=== PATIENT | male | born 1965 | race Caucasian/White ===

== ENCOUNTER 2016-12-13 08:09 | Day surgery (SDC) | payer BC ==
[2016-12-11 11:10] VITALS: BMI 35.2
[~2016-12-13 08:09] MED LIST: LACTATED RINGERS 1,000 ML IV SCH
[2016-12-13 08:59] VITALS: RESP 16; TEMP 98
[2016-12-13] MEDS ORDERED: LIDOCAINE 1% 20 ML VIAL (10MG/ML) FOR IV START INTRADERMA ONE (09:00)
[2016-12-13] MEDS ORDERED: PROPOFOL 10 MG/ML 20 ML VIAL IV ONE (09:11)
--- NOTE | 2016-12-13 09:26 | P.PCN ---
Date of Procedure: 12/13/16 Procedure(s) Performed: BRIEF HISTORY: Patient is a 51-year-old pleasant white male scheduled for an elective colonoscopy as a part of evaluation of intermittent rectal bleeding for the last 6 months duration. PROCEDURE PERFORMED: Colonoscopy. PREOPERATIVE DIAGNOSIS: Intermittent rectal bleeding. IV sedation per Anesthesia. PROCEDURE: After informed consent was obtained, the patient, was brought into the endoscopy unit. IV sedation was administered by Anesthesia under continuous monitoring. Digital rectal examination was normal. Initially the Olympus CF- 160 flexible video colonoscope was then inserted in the rectum, gradually advanced into the cecum without any difficulty. Careful examination was performed as the scope was gradually being withdrawn. Ileocecal valve and the appendiceal orifice were visualized and appeared normal. Prep was excellent. Mucosa of the cecum, ascending colon, transverse colon, descending colon, sigmoid colon, and rectum appeared normal. Retroflexion was performed in the rectum and small internal hemorrhoids were seen. The patient tolerated the procedure well. IMPRESSION: Normal-appearing colon from rectum to cecum with no evidence of colorectal neoplasia. Small internal hemorrhoids. RECOMMENDATIONS: Findings of this examination were discussed with the patient as well as his family. He was advised to be a high-fiber diet, take fiber supplements a regular basis and avoid straining and constipation. He was advised to have a repeat screening colonoscopy in 10 years.
[2016-12-13 10:07] VITALS: BP 133/79; PULSE 91
== END 2016-12-13 10:02 | disposition home or self-care (01) ==
LOC: ORWHC2ENDO 08:09
PROVIDERS: ATTEND Internal Medicine Gastroenterology
DX: K64.8 Other hemorrhoids (principal); K62.5 Hemorrhage of anus and rectum
CPT/HCPCS: 45378; J2704

== ENCOUNTER 2019-03-24 16:23 | Observation (INO) | payer BC ==
[2019-03-24] MEDS ORDERED: NITROGLYCERIN SL TABS 0.4 MG TAB SUBLINGUAL STA (16:47)
[2019-03-24] MEDS ORDERED: ASPIRIN 81 MG PO STA (16:47)
--- NOTE | 2019-03-24 16:55 | ED ---
Chest Pain HPI - General Source: patient Mode of arrival: wheelchair Limitations: no limitations <Mandeep Dorman - Last Filed: 03/24/19 20:28> <Camila Garcia - Last Filed: 03/28/19 14:04> - General Chief Complaint: Chest Pain Stated Complaint: CHEST PAIN Time Seen by Provider: 03/24/19 16:32 - History of Present Illness Initial Comments: Patient is a 53-year-old male presents emergency Department with chief complaint of chest pain. Patient reports the pain started approximately 2 days and has stayed consistent. Patient states that is an "ache rather than pain." Patient reports the pain is located at the left side of the chest and does not radiate anywhere. Patient denies near syncope, lightheadedness, dizziness, shortness of breath, chest tightness, diaphoresis or any radiation of the pain. Patient reports the pain is not exacerbated with ambulation. She reports the pain is not related to any positional movements. Patient reports a family history of heart attacks. Patient is not a smoker. (Mandeep Dorman) - Related Data Home Medications Medication Instructions Recorded Confirmed Loratadine [Claritin] 10 mg PO HS 03/24/19 03/24/19 Previous Rx's Medication Instructions Recorded Pantoprazole Sodium [Protonix] 40 mg PO -BRKFST #30 tablet. 03/25/19 Allergies Allergy/AdvReac Type Severity Reaction Status Date / Time No Known Allergies Allergy Verified 03/24/19 17:07 Review of Systems ROS Other: All systems not noted in ROS Statement are negative. <Mandeep Dorman - Last Filed: 03/24/19 20:28> ROS Other: All systems not noted in ROS Statement are negative. <Camila Garcia - Last Filed: 03/28/19 14:04> ROS Statement: Those systems with pertinent positive or pertinent negative responses have been documented in the HPI. EKG Findings - EKG Comments: EKG Findings:: EKG demonstrates normal sinus rhythm with a ventricular rate of 90. OH interval 188. QRS 90. QTC 452. There are no acute ST segment elevations or depressions concerning for ischemic changes. <Camila Garcia - Last Filed: 03/28/19 14:04> Past Medical History Past Medical History: No Reported History History of Any Multi-Drug Resistant Organisms: None Reported Past Surgical History: Adenoidectomy, Tonsillectomy Additional Past Surgical History / Comment(s): COLONOSCOPY Past Anesthesia/Blood Transfusion Reactions: No Reported Reaction Past Psychological History: No Psychological Hx Reported Smoking Status: Never smoker Past Alcohol Use History: None Reported Past Drug Use History: None Reported - Past Family History Mother Family Medical History: Cancer <Mandeep Dorman - Last Filed: 03/24/19 20:28> General Exam Limitations: no limitations General appearance: alert, in no apparent distress, obese Head exam: Present: atraumatic, normocephalic, normal inspection Eye exam: Present: normal appearance, PERRL, EOMI Pupils: Present: normal accommodation ENT exam: Present: normal exam, normal oropharynx, mucous membranes moist, TM's normal bilaterally, normal external ear exam Neck exam: Present: normal inspection, full ROM. Absent: tenderness Respiratory exam: Present: normal lung sounds bilaterally. Absent: respiratory distress, rales Cardiovascular Exam: Present: regular rate, normal rhythm, normal heart sounds GI/Abdominal exam: Present: soft, normal bowel sounds. Absent: tenderness, guarding, rebound Extremities exam: Present: normal inspection, full ROM Back exam: Present: normal inspection, full ROM Neurological exam: Present: alert, oriented X3 Psychiatric exam: Present: normal affect, normal mood Skin exam: Present: warm, intact, normal color <Mandeep Dorman - Last Filed: 03/24/19 20:28> Course Vital Signs 03/24/19 03/24/19 16:26 21:24 Temperature 98.2 F 97.7 F Pulse Rate 102 H 80 Respiratory 18 20 Rate Blood Pressure 155/87 145/93 O2 Sat by Pulse 95 94 L Oximetry Chest Pain [facility] <Mandeep Dorman - Last Filed: 03/24/19 20:28> - Differential Diagnosis AMI, ACS, Pericarditis, Pneumonia <Camila Garcia - Last Filed: 03/28/19 14:04> - [facility] Patient 53-year-old male presents emergency Department with chief complaint of chest pain. Physical examination is remarkable not radiating chest pain. Patient is not diaphoretic or syncopal. Patient vitals are stable. EKGs indicative normal sinus rhythm. Chest x-ray is unremarkable. Labs are unremarkable. Troponin levels are within normal limits. Patient has poor attendance with primary care this baseline cholesterol levels are unknown, patient is obese, about 46 years old and does have a family history of cardiovascular disease. Thus, patient will be admitted for observation and repeat troponins. Strict return parameters were thoroughly discussed the patient was understanding and agreeable. Case discussed with Dr. Garcia. Admitting physician is Dr. Cornejo. (Mandeep Dorman) The case is discussed with me. The patients calculated heart score is 4. As the patient is considered moderate risk for a cardiac event, I did recommend hospital admission. The patient agreed. The case was discussed with Dr. Caraballo who accepted admission. The patient remained in stable condition and was transported to the floor. (Camila Garcia) Disposition Is patient prescribed a controlled substance at d/c from ED?: No Time of Disposition: 20:34 <Mandeep Dorman - Last Filed: 03/24/19 20:28> Decision to Admit Reason: Admit from EC Decision Date: 03/24/19 Decision Time: :34 <Camila Garcia - Last Filed: 03/28/19 14:04> Clinical Impression: Chest pain Disposition: ADMITTED IP TO THIS [facility] Condition: Good
--- NOTE | 2019-03-24 17:22 | XR ---
EXAMINATION TYPE: XR chest 2V DATE OF EXAM: 03/24/2019 COMPARISON: NONE HISTORY: Chest pain TECHNIQUE: Frontal and lateral views of the chest are obtained. FINDINGS: Heart and mediastinum are normal. Lungs are clear. Diaphragm is normal. Bony thorax is int act. There are chest leads. IMPRESSION: Normal chest
[2019-03-24 17:25] LABS: Basophils # (A) 0.1 k/uL (0-0.2); Basophils % (A) 1 %; Eosinophils # (A) 0.4 k/uL (0-0.7); Eosinophils % (A) 5 %; HCT 42.9 % (39.0-53.0); HGB 14.5 gm/dL (13.0-17.5); Lymphocytes % (A) 24 %; MCH 30.3 pg (25.0-35.0); MCHC 33.7 g/dL (31.0-37.0); MCV 89.8 fL (80.0-100.0); Monocytes # (A) 0.5 k/uL (0-1.0); Monocytes % (A) 6 %; Neutrophils # (A) 5.2 k/uL (1.3-7.7); Neutrophils % (A) 62 %; Platelet Count 217 k/uL (150-450); RBC 4.77 m/uL (4.30-5.90); RDW 13.8 % (11.5-15.5); WBC 8.3 k/uL (3.8-10.6)
[2019-03-24 17:33] LABS: INR 0.9 (<1.2); Partial Thromboplastin Time 25.2 sec (22.0-30.0); Prothrombin Time 9.4 sec (9.0-12.0)
[2019-03-24 17:36] LABS: ALT 24 U/L (21-72); AST 21 U/L (17-59); African American GFR (CKD) >90 (>60 ml/min/1.73 sqM); Albumin 3.8 g/dL (3.5-5.0); Alkaline Phosphatase 81 U/L (38-126); Anion Gap 9 mmol/L; Blood Urea Nitrogen 15 mg/dL (9-20); Calcium 8.9 mg/dL (8.4-10.2); Carbon Dioxide 25 mmol/L (22-30); Chloride 107 mmol/L (98-107); Glucose 100 mg/dL (74-99); Potassium 4.4 mmol/L (3.5-5.1); Sodium 141 mmol/L (137-145); Total Bilirubin 0.4 mg/dL (0.2-1.3); Total Protein 6.9 g/dL (6.3-8.2)
[2019-03-24] MEDS ORDERED: NALOXONE 0.4 MG/ML 1 ML VIAL IV PRN ×2 (19:28→20:25)
[2019-03-24] MEDS ORDERED: SODIUM CHLORIDE 0.9% 1,000 ML IV SCH (19:30)
[2019-03-25 05:16] VITALS: RESP 18
[2019-03-25] MEDS ORDERED: ALBUTEROL NEBULIZED 2.5 MG/3 ML INHALATION PRN (08:57)
[2019-03-25] MEDS: ALBUTEROL NEBULIZED 2.5 MG/3 ML INHALATION SCH ×2 (09:42→15:15)
[2019-03-25 11:28] VITALS: TEMP 97.6
--- NOTE | 2019-03-25 11:53 | ECHOF ---
Referral Reason:cp MEASUREMENTS -------- HEIGHT: 180.3 cm WEIGHT: 126.1 kg BP: 143/89 RVIDd: 4.5 cm (< 3.3) IVSd: 1.8 cm (0.6 - 1.1) LVIDd: 4.7 cm (3.9 - 5.3) LVPWd: 1.4 cm (0.6 - 1.1) IVSs: 2.1 cm LVIDs: 4.1 cm LVPWs: 1.5 cm LAESV Index (A-L): 20.48 ml/m Ao Diam: 3.9 cm (2.0 - 3.7) AV Cusp: 2.5 cm (1.5 - 2.6) LA Diam: 4.0 cm (2.7 - 3.8) EPSS: 0.4 cm MV E Charles: 0.75 m/s MV DecT: 198 ms MV A Charles: 0.65 m/s MV E/A Ratio: 1.17 RAP: 5.00 mmHg RVSP: 24.42 mmHg MV EF SLOPE: 110.04 mm/s (70 - 150) MV EXCURSION: 2.05 cm (> 18.000) FINDINGS -------- Sinus rhythm. This was a technically adequate study. The left ventricular size is normal. There is moderate concentric left ventricular hypertrophy. O verall left ventricular systolic function is normal with, an EF between 55 - 60 %. The diastolic fi lling pattern is normal for the age of the patient. The right ventricle is mildly enlarged. Left atrium is normal size by volume. The right atrial size is normal. Interatrial and interventricular septum intact. There is no evidence of aortic regurgitation. There is no evidence of aortic stenosis. No mitral regurgitation. Mild tricuspid regurgitation present. There is no evidence of pulmonary hypertension. The right v entricular systolic pressure, as measured by Doppler, is 24.42mmHg. There is no pulmonic regurgitation present. The aortic root size is normal. IVC not well visualized There is no pericardial effusion. CONCLUSIONS -------- 1. Sinus rhythm. 2. This was a technically adequate study. 3. The left ventricular size is normal. 4. There is moderate concentric left ventricular hypertrophy. 5. Overall left ventricular systolic function is normal with, an EF between 55 - 60 %. 6. The diastolic filling pattern is normal for the age of the patient. 7. The right ventricle is mildly enlarged. 8. Left atrium is normal size by volume. 9. The right atrial size is normal. 10. Interatrial and interventricular septum intact. 11. There is no evidence of aortic regurgitation. 12. There is no evidence of aortic stenosis. 13. No mitral regurgitation. 14. Mild tricuspid regurgitation present. 15. There is no evidence of pulmonary hypertension. 16. The right ventricular systolic pressure, as measured by Doppler, is 24.42mmHg. 17. There is no pulmonic regurgitation present. 18. The aortic root size is normal. 19. There is no pericardial effusion. STATEMENT REQUEST CLERK: Yesenia Michael RDCS
--- NOTE | 2019-03-25 12:55 | ECHOS ---
STRESS ECHOCARDIOGRAM DATE OF SERVICE: 03/25/2019 INDICATIONS: Chest pain. MEDICATIONS: BASELINE HEART RATE: 81 BASELINE BLOOD PRESSURE: 114/58 MAXIMUM HEART RATE: 148 MAXIMUM BLOOD PRESSURE: 194/83 85% MPHR: 143 100% MPHR: 168 METS: 8 MAXIMUM STAGE REACHED: III TOTAL EXERCISE TIME: 7 minutes CLINICAL INFORMATION: Baseline EKG shows sinus rhythm, normal axis, normal intervals. Patient exercised on Sergei protocol for a total of 7 minutes achieving 8 METS, 88% of predicted maximal heart rate without chest pain or diagnostic ST-segment depression. Baseline echo shows normal left ventricular size, wall motion, and systolic function. Postexercise, there is normal hyperdynamic response of all segments of myocardium noted. CONCLUSIONS: 1. Average exercise tolerance. 2. Negative stress test by EKG criteria. 3. Negative stress echo. MMODL / IJN: [id number] /
--- NOTE | 2019-03-25 13:13 | P.CRDCN ---
History of Present Illness History of present illness: This is a pleasant 53-year-old male with no significant past medical history. He does not follow regularly with a licensed surveyor for any reason. We have been assisting him in consultation secondary to chest discomfort. He states since Friday he has felt pressure in the midsternal region. There is no radiation to the back, arm, neck or jaw. There is no associated shortness of breath, dizziness, nausea, vomiting, palpitations or diaphoresis. He did some heavy lifting on Friday and initially attributed this discomfort to musculoskeletal strain. However this pressure has remained constant since Friday with no alleviating or aggravating factors. He continues to have ongoing chest discomfort at the time of my exam. He also states he intermittently feels an irregular heartbeat associated with a sharp pain. EKG reveals sinus mechanism with no acute ST or T wave abnormalities noted. Telemetry tracings reviewed reveal PVCs. Chest x-ray is negative for an acute cardiopulmonary process. Laboratory data reviewed, CBC unremarkable, d-dimer 0.51, sodium 141, potassium 4.4, creatinine 1.02, magnesium 2.0, cardiac enzymes negative 2 and TSH 1.68. At the time of my exam: CONSTITUTIONAL: Denies fever. Denies chills. EYES: Denies blurred vision. Denies vision changes. Denies eye pain. EARS, NOSE, MOUTH & THROAT: Denies headache. Denies sore throat. Denies ear pain. CARDIOVASCULAR: Complains of chest pain. Denies shortness of breath. Denies orthopnea. Denies PND. Denies palpitations. RESPIRATORY: Denies cough. GASTROINTESTINAL: Denies abdominal pain. Denies diarrhea. Denies constipation. Denies nausea. Denies vomiting. MUSCULOSKELETAL: Denies myalgias. INTEGUMENTARY: Denies pruitis. Denies rash. NEUROLOGIC: Denies numbness. Denies tingling. Denies weakness. PSYCHIATRIC: Denies anxiety. Denies depression. ENDOCRINE: Denies fatigue. Denies weight change. Denies polydipsia. Denies polyurina. GENITOURINARY: Denies burning, hematuria or urgency with micturation. HEMATOLOGIC: Denies history of anemia. Denies bleeding. Blood pressure 125/80 heart rate 79 afebrile maintaining oxygen saturation on room air GENERAL: This is a 53-year-old male in no apparent distress at the time of my examination. Obese. HEENT: Head is atraumatic, normocephalic. Pupils are equal, round. Sclerae anicteric. Conjunctivae are clear. Mucous membranes of the mouth are moist. Neck is supple. There is no jugular venous distention. No carotid bruit is heard. LUNGS: Clear to auscultation no wheezes, rales or rhonchi. No chest wall tenderness is noted on palpation or with deep breathing. HEART: Regular rate and rhythm without murmurs, rubs or gallops. S1 and S2 heard. ABDOMEN: Soft, nontender. Bowel sounds are heard. No organomegaly noted. EXTREMITIES: No evidence of peripheral edema and no calf tenderness noted. VASCULAR: Radial and dorsalis pedis pulses palpated, no evidence of clubbing. NEUROLOGIC: Patient is awake, alert and oriented x3. ASSESSMENT Chest pain, atypical for angina. An acute coronary event has been ruled out. PLAN An acute coronary event has been ruled out. Obtain 2-D echocardiogram and Doppler study to assess cardiac structure and function. Perform stress echocardiogram to assess her stress-induced ischemic changes. Stress test is normal he is stable from a cardiac perspective. Ongoing medical management and assessment for noncardiac causes chest discomfort. Thank you kindly for this consultation. Nurse Practitioner note has been reviewed, I agree with a documented findings and plan of care. Patient was seen and examined. Past Medical History Past Medical History: No Reported History History of Any Multi-Drug Resistant Organisms: None Reported Past Surgical History: Adenoidectomy, Tonsillectomy Additional Past Surgical History / Comment(s): COLONOSCOPY Past Anesthesia/Blood Transfusion Reactions: No Reported Reaction Past Psychological History: No Psychological Hx Reported Smoking Status: Never smoker Past Alcohol Use History: None Reported Past Drug Use History: None Reported - Past Family History Mother Family Medical History: Cancer Medications and Allergies Home Medications Medication Instructions Recorded Confirmed Type Loratadine [Claritin] 10 mg PO HS 03/24/19 03/24/19 History RX: Aspirin 325 mg PO QID PRN 03/24/19 03/24/19 History Allergies Allergy/AdvReac Type Severity Reaction Status Date / Time No Known Allergies Allergy Verified 03/24/19 17:07 Physical Exam Vitals: Vital Signs Temp Pulse Pulse Resp BP BP BP 03/25/19 07:15 97.5 F L 69 18 143/89 03/25/19 04:00 98.1 F 74 18 148/92 03/24/19 23:44 97.7 F 75 20 138/84 03/24/19 22:10 20 03/24/19 22:02 98.0 F 75 18 132/83 03/24/19 21:24 97.7 F 80 20 145/93 03/24/19 16:26 98.2 F 102 H 18 155/87 Pulse Ox 03/25/19 07:15 94 L 03/25/19 04:00 93 L 03/24/19 23:44 92 L 03/24/19 22:10 03/24/19 22:02 92 L 03/24/19 21:24 94 L 03/24/19 16:26 95 Intake and Output 03/24/19 03/25/19 03/25/19 22:59 06:59 14:59 Intake Total 100 Balance 100 Intake: Oral 100 Other: Voiding Method Toilet Toilet # Voids 2 Weight 126.099 kg Results 03/24/19 17:01 03/24/19 17:01 Cardiac Enzymes 03/24/19 03/24/19 03/24/19 Range/Units 17:01 17:01 19:47 AST 21 (17-59) U/L Troponin I <0.012 <0.012 (0.000-0.034) ng/mL Coagulation 03/24/19 Range/Units 17:01 PT 9.4 (9.0-12.0) sec APTT 25.2 (22.0-30.0) sec CBC 03/24/19 Range/Units 17:01 WBC 8.3 (3.8-10.6) k/uL RBC 4.77 (4.30-5.90) m/uL Hgb 14.5 (13.0-17.5) gm/dL Hct 42.9 (39.0-53.0) % Plt Count 217 (150-450) k/uL Comprehensive Metabolic Panel 03/24/19 Range/Units 17:01 Sodium 141 (137-145) mmol/L Potassium 4.4 (3.5-5.1) mmol/L Chloride 107 (98-107) mmol/L Carbon Dioxide 25 (22-30) mmol/L BUN 15 (9-20) mg/dL Creatinine 1.02 (0.66-1.25) mg/dL Glucose 100 H (74-99) mg/dL Calcium 8.9 (8.4-10.2) mg/dL AST 21 (17-59) U/L ALT 24 (21-72) U/L Alkaline Phosphatase 81 (38-126) U/L Total Protein 6.9 (6.3-8.2) g/dL Albumin 3.8 (3.5-5.0) g/dL Current Medications Generic Name Dose Route Start Last Admin Trade Name Freq PRN Reason Stop Dose Admin Naloxone HCl 0.2 mg 03/24/19 19:28 Narcan IV Q2M PRN Opioid Reversal Naloxone HCl 0.2 mg 03/24/19 20:25 Narcan IV Q2M PRN Opioid Reversal Intake and Output 03/24/19 03/25/19 03/25/19 22:59 06:59 14:59 Intake Total 100 Balance 100 Intake: Oral 100 Other: Voiding Method Toilet Toilet # Voids 2 Weight 126.099 kg 03/24/19 17:01 03/24/19 17:01
[2019-03-25] MEDS ORDERED: PANTOPRAZOLE 40 MG TABLET PO STA (13:44)
[2019-03-25] MEDS ORDERED: MAG HYDROX/AL HYDROX/SIMETH 30 ML CUP PO SCH (14:15)
[2019-03-25 16:04] VITALS: BP 114/73; PULSE 96
--- NOTE | 2019-04-05 01:31 | P.HPIM ---
History of Present Illness H&P Date: 03/25/19 Chief Complaint: Chest pain Erich martinez is a 53-year-old male with a known history of asthma came to ER with complaints of chest pressure starting about 5 days back. Mainly left r etrosternal area. No radiation of the pain. No associated shortness of breath. No nausea vomiting or diaphoresis. No palpitations no headache or dizziness or lightheadedness.He did some heavy lifting on Friday and initially attributed this discomfort to musculoskeletal strain. However this pressure has remained constant since Friday night with no alleviating or aggravating factors. He continues to have ongoing chest discomfort at the time of my exam. He also states he intermittently feels an irregular heartbeat associated with a sharp pain. Patient says that he has been taking aspirin 4 times daily recently. EKG reveals sinus mechanism with no acute ST or T wave abnormalities noted. Telemetry tracings reviewed reveal PVCs. Chest x-ray is negative for an acute cardiopulmonary process. Laboratory data reviewed, CBC unremarkable, d-dimer 0.51, sodium 141, potassium 4.4, creatinine 1.02, magnesium 2.0, cardiac enzymes negative 2 and TSH 1.68. Review of Systems Constitutional: Patient denies any fever or chills . No generalized weakness or weight loss. Abdomen: Patient denied nausea vomiting and diarrhea and abdominal pain. Cardiovascular: Patient denies any chest pain or does have chest pressure. No short of breath no palpitations. Respiratory: patient denied any cough is from production. No shortness of breath Neurologic: Patient denied any numbness or tingling headache. Musculoskeletal: Patient denies any complaints of joint swelling or deformity. Skin: Negative Psychiatric: Negative Endocrine: No heat or cold intolerance. No recent weight gain. Genitourinary: No dysuria or hematuria. All other 14 point ROS negative except the above Past Medical History Past Medical History: No Reported History History of Any Multi-Drug Resistant Organisms: None Reported Past Surgical History: Adenoidectomy, Tonsillectomy Additional Past Surgical History / Comment(s): COLONOSCOPY Past Anesthesia/Blood Transfusion Reactions: No Reported Reaction Past Psychological History: No Psychological Hx Reported Smoking Status: Never smoker Past Alcohol Use History: None Reported Past Drug Use History: None Reported - Past Family History Mother Family Medical History: Cancer Medications and Allergies Home Medications Medication Instructions Recorded Confirmed Type Loratadine [Claritin] 10 mg PO HS 03/24/19 03/24/19 History Pantoprazole Sodium [Protonix] 40 mg PO AC-BRKFST #30 tablet. 03/25/19 Rx Allergies Allergy/AdvReac Type Severity Reaction Status Date / Time No Known Allergies Allergy Verified 03/24/19 17:07 Physical Exam Vitals: Vital Signs Temp Pulse Pulse Resp BP BP BP 03/25/19 07:15 97.5 F L 69 18 143/89 03/25/19 04:00 98.1 F 74 18 148/92 03/24/19 23:44 97.7 F 75 20 138/84 03/24/19 22:10 20 03/24/19 22:02 98.0 F 75 18 132/83 03/24/19 21:24 97.7 F 80 20 145/93 03/24/19 16:26 98.2 F 102 H 18 155/87 Pulse Ox 03/25/19 07:15 94 L 03/25/19 04:00 93 L 03/24/19 23:44 92 L 03/24/19 22:10 03/24/19 22:02 92 L 03/24/19 21:24 94 L 03/24/19 16:26 95 Intake and Output 03/24/19 03/25/19 03/25/19 22:59 06:59 14:59 Intake Total 100 Balance 100 Intake: Oral 100 Other: Voiding Method Toilet Toilet # Voids 2 Weight 126.099 kg PHYSICAL EXAMINATION: Patient is lying in the bed comfortably, no acute distress, awake alert and oriented.. HEENT: Normocephalic. Neck is supple. Pupils reactive. Nostrils clear. Oral cavity is moist. Ears reveal no drainage. Neck reveals no JVD, carotid bruits, or thyromegaly. CHEST EXAMINATION: Trachea is central. Symmetrical expansion. Lung amezquita clear to auscultation and percussion. CARDIAC: Normal S1, S2 with no gallops. No murmurs ABDOMEN: Soft. Bowel sounds normal. No organomegaly. No abdominal bruits. Extremities: reveal no edema. No clubbing or cyanosis Neurologically awake, alert, oriented x3 with well-coordinated movements. No focal deficits noted Skin: No rash or skin lesions. Psychiatric: Coperative. Nonsuicidal Musculoskeletal: No joint swelling or deformity. Normal range of motion. Results CBC & Chem 7: 03/24/19 17:01 03/24/19 17:01 Labs: Abnormal Lab Results - Last 24 Hours (Table) 03/24/19 Range/Units 17:01 Glucose 100 H (74-99) mg/dL Thrombosis Risk Factor Assmnt - DVT/VTE Prophylaxis DVT/VTE Prophylaxis: Pharmacologic Prophylaxis ordered - Choose All That Apply Any of the Below Risk Factors Present?: Yes Each Factor Represents 1 point: Obesity (BMI >25) Other Risk Factors: No Other congenital or acquired thrombophilia - If yes, enter type in comment: No Thrombosis Risk Factor Assessment Total Risk Factor Score: 1 Thrombosis Risk Factor Assessment Level: Low Risk Assessment and Plan Assessment: Atypical chest pain. Ruled out ACS. Possible acute gastritis and esophagitis due to aspirin use 4 times daily. DVT prophylaxis. Plan: Patient will be continued on telemetry monitoring. Serial EKGs and troponins 3 negative. Cardiology is planning for stress echocardiogram today. Patient will be continued on PPI daily. Further recommendations based on the clinical course. Next and Time with Patient: Greater than 30
--- NOTE | 2019-04-05 01:33 | P.DS ---
Providers Date of admission: 03/24/19 20:25 Expected date of discharge: 03/25/19 Attending physician: Carmelo Bui Consults: 03/24/19 21:44 Consult Physician Routine Consulting Provider: Cortney Eden Consult Reason/Comments: Chest Pain/Pressure Do you want consulting provider notified?: Yes, Notify in am [facility] care physician[facility]: Discharge diagnosis Atypical chest pain. Ruled out ACS. Possible acute gastritis and esophagitis due to aspirin use 4 times daily. DVT prophylaxis. Hospital course Patient is a 53-year-old male with a known history of asthma came to ER with complaints of chest pressure starting about 5 days back. Mainly left retrosternal area. No radiation of the pain. No associated shortness of breath. No nausea vomiting or diaphoresis. No palpitations no headache or dizziness or lightheadedness.He did some heavy lifting on Friday and initially attributed this discomfort to musculoskeletal strain. However this pressure has remained constant since Friday night with no alleviating or aggravating factors. He continues to have ongoing chest discomfort at the time of my exam. He also states he intermittently feels an irregular heartbeat associated with a sharp pain. Patient says that he has been taking aspirin 4 times daily recently. EKG reveals sinus mechanism with no acute ST or T wave abnormalities noted. Telemetry tracings reviewed reveal PVCs. Chest x-ray is negative for an acute cardiopulmonary process. Laboratory data reviewed, CBC unremarkable, d-dimer 0.51, sodium 141, potassium 4.4, creatinine 1.02, magnesium 2.0, cardiac enzymes negative 2 and TSH 1.68. Patient was continued on telemetry monitoring. Serial EKGs and troponins 3 negative. Stress echocardiogram showed no inducible ischemia. Normal ejection fraction.. Patient will be continued on PPI daily. Patient is being discharged home today. Discharge physical examination was done and vitals reviewed. Patient Condition at Discharge: Good Plan - Discharge Summary New Discharge Prescriptions: New Pantoprazole Sodium [Protonix] 40 mg PO AC-BRKFST #30 tablet. Continue Loratadine [Claritin] 10 mg PO HS Discontinued Aspirin 325 mg PO QID PRN PRN Reason: Pain Discharge Medication List Loratadine [Claritin] 10 mg PO HS 03/24/19 [History] Pantoprazole Sodium [Protonix] 40 mg PO AC-BRKFST #30 tablet. 03/25/19 [Rx] Follow up Appointment(s)/Referral(s): Ismael Gan DO [Primary Care Provider] - 1-2 days Fran Villela MD [STAFF PHYSICIAN] - 04/13/19 3:45 pm (Please make sure to have identification and insurance cards with you for your appointment. ) Patient Instructions/Handouts: Chest Pain (ED) Activity/Diet/Wound Care/Special Instructions: Patient will be admitted Discharge Disposition: HOME SELF-CARE
== END 2019-03-25 17:10 | disposition home or self-care (01) ==
LOC: EC 16:23 → 1SOBS 20:25
PROVIDERS: ADMIT Internal Medicine; ATTEND Internal Medicine
DX: R07.89 Other chest pain (principal); I49.3 Ventricular premature depolarization; E66.9 Obesity, unspecified; Z68.38 Body mass index [BMI] 38.0-38.9, adult; Z79.82 Long term (current) use of aspirin; Z79.899 Other long term (current) drug therapy; Z82.49 Family history of ischemic heart disease and other diseases of the circulatory system; Z80.9 Family history of malignant neoplasm, unspecified
CPT/HCPCS: 96361 ×2; 96360; 99285; 36415; 94640 ×2; 93005; 93306; 93351; 85379; 80053; 84443; 83735; 84484; 85025; 85610; 85730; 71046; G0378 ×2

== ENCOUNTER 2021-08-11 11:26 | Emergency (ER) | payer BC ==
[2021-08-11 11:35] VITALS: PULSE 77; TEMP 98
--- NOTE | 2021-08-11 12:00 | ED ---
General Adult HPI - General Chief complaint: ENT Stated complaint: Sore Throat Time Seen by Provider: 08/11/21 11:48 Source: patient, RN notes reviewed, old records reviewed Mode of arrival: ambulatory Limitations: no limitations - History of Present Illness Initial comments: Well appearing 56-year-old male, alert and oriented 4, presents to the emerge ncy room with complaints of right-sided jaw pain that radiates down the right side of his neck. Patient states it started on . He denies any nausea, vomiting, dizziness or fevers. He did go to urgent care and they told him he could have a dissection in his neck and to come to the emergency room for a CAT scan. Patient's only medical history is anxiety and takes Xanax as needed. He is a nonsmoker. -: days(s) (2) Location: mouth (right side TMJ ) Radiation: neck Severity scale (1-10): 8 Quality: dull Consistency: constant Improves with: immobilization Worsens with: movement, other (palpation) Associated Symptoms: fever/chills Treatments Prior to Arrival: none - Related Data Home Medications Medication Instructions Recorded Confirmed Loratadine [Claritin] 10 mg PO HS 03/24/19 03/24/19 Previous Rx's Medication Instructions Recorded Pantoprazole Sodium [Protonix] 40 mg PO AC-MARISABELKFST #30 tablet. 03/25/19 Amoxicillin/Potassium Clav 1 tab PO Q12HR #20 tab 08/11/21 [Augmentin 875-125 Tablet] Allergies Allergy/AdvReac Type Severity Reaction Status Date / Time No Known Allergies Allergy Verified 08/11/21 11:35 Review of Systems ROS Statement: Those systems with pertinent positive or pertinent negative responses have been documented in the HPI. ROS Other: All systems not noted in ROS Statement are negative. Past Medical History Past Medical History: No Reported History History of Any Multi-Drug Resistant Organisms: None Reported Past Surgical History: Adenoidectomy, Tonsillectomy Additional Past Surgical History / Comment(s): COLONOSCOPY Past Anesthesia/Blood Transfusion Reactions: No Reported Reaction Past Psychological History: Anxiety Smoking Status: Never smoker Past Alcohol Use History: None Reported Past Drug Use History: None Reported - Past Family History Mother Family Medical History: Cancer General Exam Limitations: no limitations General appearance: alert, in no apparent distress Head exam: Present: atraumatic, normocephalic, normal inspection Eye exam: Present: normal appearance, EOMI. Absent: scleral icterus, conjunctival injection, nystagmus, periorbital swelling, periorbital tenderness ENT exam: Present: normal exam, normal oropharynx, mucous membranes moist, TM's normal bilaterally Expanded Ear exam: Present: normal external inspection TM/Canal exam: Mastoid Tenderness: Right TM Mouth exam: Present: normal external inspection, tongue normal, tongue elevation. Absent: drooling, trismus, muffled voice Throat exam: normal inspection. negative: tonsillar erythema, tonsillomegaly, tonsillar exudate, R peritonsillar mass, L peritonsillar mass Neck exam: Present: normal inspection, full ROM, lymphadenopathy (Right-sided submandibular and anterior cervical chain). Absent: meningismus Respiratory exam: Present: normal lung sounds bilaterally. Absent: respiratory distress, wheezes, rales, rhonchi, stridor, chest wall tenderness, accessory muscle use, decreased breath sounds, prolonged expiratory Cardiovascular Exam: Present: regular rate, normal rhythm, normal heart sounds. Absent: systolic murmur, diastolic murmur, rubs, gallop, clicks GI/Abdominal exam: Present: soft, normal bowel sounds. Absent: distended, tenderness, guarding, rebound, rigid Extremities exam: Present: normal inspection, full ROM, normal capillary refill. Absent: tenderness, pedal edema, joint swelling, calf tenderness Back exam: Present: normal inspection, full ROM. Absent: tenderness, CVA tenderness (R), CVA tenderness (L), rash noted Neurological exam: Present: alert, oriented X3, CN II-XII intact Psychiatric exam: Present: normal affect, normal mood Skin exam: Present: warm, dry, intact, normal color. Absent: rash, cyanosis, diaphoretic Course Vital Signs 08/11/21 08/11/21 11:32 13:31 Temperature 98 F Pulse Rate 77 Respiratory 20 16 Rate Blood Pressure 185/104 151/99 O2 Sat by Pulse 94 L Oximetry Medical Decision Making - Medical Decision Making Well-appearing 56-year-old male presents to the emergency room with right-sided jaw pain that radiates down his neck since . He went to urgent care and he was told to come to the emergency room for possible carotid dissection. CT angiogram neck shows no significant abnormality. Temporomandibular joints are maintained bilaterally. There is an incidental 1.9 cm mucous retention cyst or polyp in the inferior left maxillary sinus patient has no discomfort in this area. No evidence of leukocytosis. Electrolytes are unremarkable. Patient is afebrile. There is no evidence of trismus, erythema or abscess. There is some inflammation and tenderness surrounding the parotid gland therefore he will be treated with antibiotics for parotitis. He was directed to return to the emergency room with any new or worsening symptoms, follow-up with his primary c are doctor regarding elevated blood pressure. A cephid swab was obtained however labs states they did not receive the specimen. Patient was discharged with the intent of calling him with the results however unable to locate the swab we are unable to perform the test. - Lab Data Result diagrams: 08/11/21 12:31 08/11/21 12:31 Lab Results 08/11/21 08/11/21 Range/Units 12:31 12:31 WBC 6.6 (3.8-10.6) k/uL RBC 4.56 (4.30-5.90) m/uL Hgb 14.4 (13.0-17.5) gm/dL Hct 42.9 (39.0-53.0) % MCV 94.1 (80.0-100.0) fL MCH 31.6 (25.0-35.0) pg MCHC 33.6 (31.0-37.0) g/dL RDW 14.0 (11.5-15.5) % Plt Count 216 (150-450) k/uL MPV 8.4 Neutrophils % 68 % Lymphocytes % 21 % Monocytes % 5 % Eosinophils % 4 % Basophils % 1 % Neutrophils # 4.5 (1.3-7.7) k/uL Lymphocytes # 1.4 (1.0-4.8) k/uL Monocytes # 0.3 (0-1.0) k/uL Eosinophils # 0.3 (0-0.7) k/uL Basophils # 0.1 (0-0.2) k/uL Sodium 139 (137-145) mmol/L Potassium 4.8 (3.5-5.1) mmol/L Chloride 107 (98-107) mmol/L Carbon Dioxide 25 (22-30) mmol/L Anion Gap 7 mmol/L BUN 15 (9-20) mg/dL Creatinine 0.74 (0.66-1.25) mg/dL Est GFR (CKD-EPI)AfAm >90 (>60 ml/min/1.73 sqM) Est GFR (CKD-EPI)NonAf >90 (>60 ml/min/1.73 sqM) Glucose 100 H (74-99) mg/dL Calcium 9.0 (8.4-10.2) mg/dL Total Bilirubin 0.7 (0.2-1.3) mg/dL AST 37 (17-59) U/L ALT 41 (4-49) U/L Alkaline Phosphatase 81 (38-126) U/L Total Protein 7.3 (6.3-8.2) g/dL Albumin 4.0 (3.5-5.0) g/dL Disposition Clinical Impression: Parotitis, acute Disposition: HOME SELF-CARE Condition: Good Additional Instructions: Use warm compresses to the site and take antibiotics as prescribed. Follow-up with the primary care doctor next week regarding elevated blood pressure. Return to the emergency room with any new or worsening symptoms. Prescriptions: Amoxicillin/Potassium Clav [Augmentin 875-125 Tablet] 1 tab PO Q12HR #20 tab Is patient prescribed a controlled substance at d/c from ED?: No Referrals: Radha Sheikh MD [Primary Care Provider] - 1-2 days Time of Disposition: 14:23
[2021-08-11] MEDS ORDERED: IBUPROFEN 800 MG TAB PO STA (12:29)
[2021-08-11] MEDS ORDERED: ACETAMINOPHEN TAB 325 MG TAB PO STA (12:29)
[2021-08-11 12:37] LABS: Basophils # (A) 0.1 k/uL (0-0.2); Basophils % (A) 1 %; Eosinophils # (A) 0.3 k/uL (0-0.7); Eosinophils % (A) 4 %; HCT 42.9 % (39.0-53.0); HGB 14.4 gm/dL (13.0-17.5); Lymphocytes # (A) 1.4 k/uL (1.0-4.8); Lymphocytes % (A) 21 %; MCH 31.6 pg (25.0-35.0); MCHC 33.6 g/dL (31.0-37.0); MCV 94.1 fL (80.0-100.0); Mean Platelet Volume 8.4; Monocytes # (A) 0.3 k/uL (0-1.0); Monocytes % (A) 5 %; Neutrophils # (A) 4.5 k/uL (1.3-7.7); Neutrophils % (A) 68 %; Platelet Count 216 k/uL (150-450); RBC 4.56 m/uL (4.30-5.90); WBC 6.6 k/uL (3.8-10.6)
[2021-08-11 12:51] LABS: ALT 41 U/L (4-49); AST 37 U/L (17-59); African American GFR (CKD) >90 (>60 ml/min/1.73 sqM); Alkaline Phosphatase 81 U/L (38-126); Anion Gap 7 mmol/L; Blood Urea Nitrogen 15 mg/dL (9-20); Carbon Dioxide 25 mmol/L (22-30); Chloride 107 mmol/L (98-107); Glucose 100 mg/dL (74-99); Non-African American GFR(CKD) >90 (>60 ml/min/1.73 sqM); Sodium 139 mmol/L (137-145); Total Bilirubin 0.7 mg/dL (0.2-1.3); Total Protein 7.3 g/dL (6.3-8.2)
[2021-08-11 12:57] LABS: Potassium 4.8 mmol/L (3.5-5.1)
[2021-08-11 13:31] VITALS: BP 151/99; RESP 16
--- NOTE | 2021-08-11 13:44 | CT ---
EXAMINATION TYPE: CT angio neck DATE OF EXAM: 08/11/2021 HISTORY: Rt sided jaw/TMJ and neck pain COMPARISON: None. CT DLP: 660.8 mGycm. Automated Exposure Control for Dose Reduction was Utilized. TECHNIQUE: CTA scan of the neck is performed with IV Contrast, patient injected with 65 mL of Isovue 370, axial images are obtained, coronal and sagittal reformatted images are reviewed. 3D reconstruct ed images are created on an independent workstation and reviewed. FINDINGS: Carotid/Vascular Structures: Three-vessel origin from aortic arch without significant plaque or steno sis. Normal origin right common carotid artery from right brachiocephalic artery. No significant plaq ue or stenosis at right carotid bulb. Mild peripheral mixed plaque left carotid bulb without signific ant stenosis. Patent external carotid arteries bilaterally without significant plaque or stenosis. Vi sualized portion of common and internal carotid artery show no significant plaque or stenosis. Other: Temporomandibular joints are maintained bilaterally. Incidental 1.9 cm mucous retention cyst or polyp in the inferior left maxillary sinus. IMPRESSION: No significant abnormality is seen. NASCET criteria was used in interpretation of this exam?
[2021-08-11] MEDS ORDERED: AMOXIC-POT CLAV 875-125MG 1 EACH TAB PO STA (14:21)
== END 2021-08-11 14:34 | disposition home or self-care (01) ==
LOC: EC 11:26
DX: K11.20 Sialoadenitis, unspecified (principal); F41.9 Anxiety disorder, unspecified
CPT/HCPCS: 36415; 80053; 85025; 70498; 99283; Q9967

== ENCOUNTER → 2023-04-03 | Outpatient (CLI) | payer BC ==
[2023-04-04 01:42] LABS: Basophils # (A) 0.07 X 10*3/uL (0.00-0.10); Basophils % (A) 0.9 %; Eosinophils # (A) 0.57 X 10*3/uL (0.04-0.35); Eosinophils % (A) 7.3 %; HCT 44.9 % (39.6-50.0); HGB 14.3 d/dL (13.0-17.0); Lymphocytes # (A) 1.64 X 10*3/uL (0.90-5.00); Lymphocytes % (A) 20.9 %; MCH 29.7 pg (27.0-32.0); MCHC 31.8 d/dL (32.0-37.0); MCV 93.3 FL (80.0-97.0); Mean Platelet Volume 11.9 FL (9.5-12.2); Monocytes # (A) 0.63 X 10*3/uL (0.20-1.00); NRBC Per 100 WBC 0 X 10*3/uL (0.00-0.01); Neutrophils # (A) 4.89 X 10*3/uL (1.80-7.70); Neutrophils % (A) 62.4 %; Platelet Count 197 X 10*3/uL (140-440); RBC 4.81 X 10*6/uL (4.40-5.60); WBC 7.84 X 10*3/uL (4.50-10.00)
[2023-04-04 01:58] LABS: ALT 80 U/L (10-49); AST 40 U/L (14-35)
== END | disposition home or self-care (01) ==
LOC: LABWHC1 16:09
PROVIDERS: ATTEND Student in an Organized Health Care Education/Training Program
DX: L40.0 Psoriasis vulgaris (principal)
CPT/HCPCS: 36415; 82565; 84450; 84460; 85025; 86480

== ENCOUNTER → 2023-09-22 | Outpatient (CLI) | payer BC ==
[2023-09-22 14:48] LABS: HCT 44.8 % (39.6-50.0); HGB 14.5 g/dL (13.0-17.0); MCH 30.1 pg (27.0-32.0); MCHC 32.4 g/dL (32.0-37.0); MCV 92.9 FL (80.0-97.0); Mean Platelet Volume 11.8 FL (9.5-12.2); NRBC Per 100 WBC 0 X 10*3/uL (0.00-0.01); Platelet Count 207 X 10*3/uL (140-440); RBC 4.82 X 10*6/uL (4.40-5.60); RDW 13.9 % (11.5-14.5); WBC 7.54 X 10*3/uL (4.50-10.00)
[2023-09-22 15:39] LABS: ALT 39 U/L (10-49); AST 20 U/L (14-35); Albumin/Globulin Ratio 1.38 Ratio (1.60-3.17); Alkaline Phosphatase 92 U/L (41-126); Blood Urea Nitrogen 14.4 mg/dL (9.0-27.0); Calcium 9.2 mg/dL (8.7-10.3); Carbon Dioxide 28.5 mmol/L (21.6-31.8); Chloride 104 mmol/L (96-109); Chol/HDL Ratio 3.36 Ratio; Globulin 2.9 g/dL (1.6-3.3); Glucose 111 mg/dL (70-110); LDL Cholesterol,Calculated 101.1 mg/dL (0.0-131.0); Potassium 4.7 mmol/L (3.5-5.5); Sodium 143 mmol/L (135-145); Total Bilirubin 0.4 mg/dL (0.3-1.2); Total Protein 6.9 g/dL (6.2-8.2)
== END | disposition home or self-care (01) ==
LOC: LABWHC1 08:31
PROVIDERS: ATTEND Internal Medicine
DX: I10 Essential (primary) hypertension (principal); E66.01 Morbid (severe) obesity due to excess calories; R53.83 Other fatigue; Z83.3 Family history of diabetes mellitus
CPT/HCPCS: 36415; 80053; 80061; 83036; 84443; 85027

== ENCOUNTER → 2023-12-17 | Outpatient (CLI) | payer BC ==
--- NOTE | 2023-12-21 21:57 | MR ---
EXAMINATION: MR tib fib RT wo con DATE OF EXAM: 12/17/2023 COMPARISON: None available HISTORY: Right lower leg pain x4 months, Evaluate for stress fracture, Hx Right knee arthroscopy 2-3 yrs ago TECHNIQUE: Multiplanar, multisequence images of the right tibia fibula. were acquired without contras t. FINDINGS: BONES/MARROW: Small linear area of cortical thickening with subjacent abnormal low T1 signal and incr eased signal on fluid sensitive sequences located within the subcortical intramedullary canal of the anterior mid/distal tibia. The remainder of the bone marrow signal is normal. SOFT TISSUES: Pretibial subcutaneous edema. Myotendinous structures are normal. No anatomic variant. No bursal distention. No fluid collection. NEUROVASCULAR: Visualized neurovascular structures are normal. OTHER: Normal. No mass. No lymphadenopathy. IMPRESSION: Cortical thickening and intramedullary signal abnormality in the mid/distal tibia most consistent wit h insufficiency/stress fracture.
== END | disposition home or self-care (01) ==
LOC: RADMRIMAIN 16:23
PROVIDERS: ATTEND Orthopaedic Surgery
DX: Z48.89 Encounter for other specified surgical aftercare (principal); M89.8X6 Other specified disorders of bone, lower leg; M17.11 Unilateral primary osteoarthritis, right knee; M23.331 Other meniscus derangements, other medial meniscus, right knee; M79.661 Pain in right lower leg

== ENCOUNTER → 2023-12-25 | Outpatient (CLI) | payer BC ==
[2023-12-25 14:41] LABS: HGB 14.6 g/dL (13.0-17.0); MCH 29.6 pg (27.0-32.0); MCHC 32.4 g/dL (32.0-37.0); MCV 91.3 FL (80.0-97.0); Mean Platelet Volume 12.1 FL (9.5-12.2); NRBC Per 100 WBC 0 X 10*3/uL (0.00-0.01); Platelet Count 224 X 10*3/uL (140-440); RBC 4.93 X 10*6/uL (4.40-5.60); RDW 13.9 % (11.5-14.5); WBC 6.72 X 10*3/uL (4.50-10.00)
[2023-12-25 14:50] LABS: Appearance,Urine Clear (Clear); Bilirubin,Urine Negative (Negative); Blood,Urine Negative (Negative); Color,Urine Yellow (Yellow); Ketones,Urine Negative (Negative); Nitrite,Urine Negative (Negative); Specific Gravity,Urine 1.017 (1.001-1.030); Urobilinogen,Urine 0.2 E.U./DL
[2023-12-25 15:43] LABS: ALT 30 U/L (10-49); AST 22 U/L (14-35); Albumin 4.1 g/dL (3.8-4.9); Albumin/Globulin Ratio 1.41 Ratio (1.60-3.17); Alkaline Phosphatase 93 U/L (41-126); BUN/Creat Ratio 13.27 Ratio (12.00-20.00); Blood Urea Nitrogen 14.6 mg/dL (9.0-27.0); Calcium 9.3 mg/dL (8.7-10.3); Carbon Dioxide 25.5 mmol/L (21.6-31.8); Chloride 103 mmol/L (96-109); Globulin 2.9 g/dL (1.6-3.3); Glucose 128 mg/dL (70-110); Phosphorus 3.3 mg/dL (2.4-5.1); Potassium 4.7 mmol/L (3.5-5.5); Sodium 139 mmol/L (135-145); Total Bilirubin 0.5 mg/dL (0.3-1.2)
== END | disposition home or self-care (01) ==
LOC: LABWHC1 10:32
PROVIDERS: ATTEND Orthopaedic Surgery
DX: M17.11 Unilateral primary osteoarthritis, right knee (principal); M23.331 Other meniscus derangements, other medial meniscus, right knee; Z48.89 Encounter for other specified surgical aftercare; M79.661 Pain in right lower leg
CPT/HCPCS: 36415; 80053; 81003; 82306; 82310; 82652; 83970; 84100; 85027

== ENCOUNTER → 2024-02-03 | Outpatient (CLI) | payer BC ==
[2024-02-03 18:42] LABS: Basophils # (A) 0.09 X 10*3/uL (0.00-0.10); Eosinophils # (A) 0.47 X 10*3/uL (0.04-0.35); Eosinophils % (A) 5.2 %; HCT 46.7 % (39.6-50.0); HGB 15.3 g/dL (13.0-17.0); Lymphocytes # (A) 2.19 X 10*3/uL (0.90-5.00); Lymphocytes % (A) 24.3 %; MCH 29.8 pg (27.0-32.0); MCHC 32.8 g/dL (32.0-37.0); MCV 90.9 FL (80.0-97.0); Mean Platelet Volume 12.8 FL (9.5-12.2); Monocytes # (A) 0.66 X 10*3/uL (0.20-1.00); Monocytes % (A) 7.3 %; NRBC Per 100 WBC 0 X 10*3/uL (0.00-0.01); Neutrophils # (A) 5.59 X 10*3/uL (1.80-7.70); Neutrophils % (A) 61.9 %; Platelet Count 238 X 10*3/uL (140-440); RBC 5.14 X 10*6/uL (4.40-5.60); RDW 14.5 % (11.5-14.5); WBC 9.03 X 10*3/uL (4.50-10.00)
[2024-02-03 19:13] LABS: ALT 32 U/L (10-49); AST 25 U/L (14-35)
== END | disposition home or self-care (01) ==
LOC: LABWHC1 13:15
PROVIDERS: ATTEND Dermatology MOHS-Micrographic Surgery
DX: L40.0 Psoriasis vulgaris (principal); Z79.899 Other long term (current) drug therapy
CPT/HCPCS: 36415; 82565; 84450; 84460; 85025; 86480

== ENCOUNTER → 2025-02-07 | Outpatient (CLI) | payer BC ==
[2025-02-07 15:21] LABS: ALT 33 U/L (10-49); AST 23 U/L (14-35)
[2025-02-07 16:01] LABS: Basophils # (A) 0.07 X 10*3/uL (0.00-0.10); Basophils % (A) 1.0 %; Eosinophils # (A) 0.37 X 10*3/uL (0.04-0.35); Eosinophils % (A) 5.2 %; HCT 44.6 % (39.6-50.0); HGB 14.4 g/dL (13.0-17.0); Immature Grans, Automated 0.40 %; Lymphocytes # (A) 1.62 X 10*3/uL (0.90-5.00); Lymphocytes % (A) 22.8 %; MCH 29.3 pg (27.0-32.0); MCHC 32.3 g/dL (32.0-37.0); MCV 90.7 FL (80.0-97.0); Monocytes # (A) 0.56 X 10*3/uL (0.20-1.00); Monocytes % (A) 7.9 %; NRBC Per 100 WBC 0 X 10*3/uL (0.00-0.01); Neutrophils # (A) 4.44 X 10*3/uL (1.80-7.70); Neutrophils % (A) 62.7 %; Platelet Count 202 X 10*3/uL (140-440); RBC 4.92 X 10*6/uL (4.40-5.60); RDW 13.7 % (11.5-14.5); WBC 7.09 X 10*3/uL (4.50-10.00)
== END | disposition home or self-care (01) ==
LOC: LABWHC1 12:48
PROVIDERS: ATTEND Dermatology
DX: L40.0 Psoriasis vulgaris (principal)
CPT/HCPCS: 36415; 82565; 84450; 84460; 85025; 86480